=== PATIENT | female | born 1935 | race Caucasian/White ===

== ENCOUNTER 2018-06-29 08:20 | Emergency (ER) | payer MEDICARE, BC ==
[~2018-06-29] VITALS: Ht 172.7 cm; Wt 66.2 kg
--- NOTE | 2018-06-29 08:32 | NUR ---
PT BIBSELF WITH FACIAL BRUISING AND LEFT KNEE PAIN. LEFT SWOLEN KNEE S/P FALL AT A STORE YESTERDAY. -KO. PT ON MONITOR IN BED 3. FAMILY AT BEDSIDE. WILL CONTINUE TO MONITOR.
--- NOTE | 2018-06-29 09:19 | NUR ---
PT BROUGHT BACK FROM CT VIA [facility]. PT TOLERATED WELL.
--- NOTE | 2018-06-29 10:13 | NUR ---
IV removed. Catheter intact and site benign. Pressure and 4x4 applied to site. No bleeding noted.Patient discharged to home in stable condition. Written and verbal after care instructions given. Patient verbalizes understanding of instruction.
[2018-06-29 10:14] VITALS: BP 136/74
== END 2018-06-29 10:15 | disposition home or self-care (01) ==
LOC: ER 08:28
DX: S02.2XXA Fracture of nasal bones, initial encounter for closed fracture (principal); S00.83XA Contusion of other part of head, initial encounter; S89.82XA Other specified injuries of left lower leg, initial encounter; W18.39XA Other fall on same level, initial encounter; Y93.89 Activity, other specified; Y92.89 Other specified places as the place of occurrence of the external cause; Y99.8 Other external cause status
CPT/HCPCS: 70450-TC; 70486-TC; 73564-TC; A4606; Z7610

== ENCOUNTER 2019-04-26 10:38 | Emergency (ER) | payer MEDICARE, BC ==
[~2019-04-26] VITALS: Ht 167.6 cm; Wt 56.2 kg
[2019-04-26 10:56] VITALS: BP 114/70
[2019-04-26] MEDS ORDERED: TDAP [DIPH/PERTUSSIS/TET] 0.5 ML VIAL IM ONE ×2 (11:28→11:30)
--- NOTE | 2019-04-26 11:29 | NUR ---
WOUND CLEANING DONE, DERMABOUND APPLIED ON THE LEFT INDEX FINGER.
--- NOTE | 2019-04-26 11:41 | NUR ---
Patient discharged to home in stable condition. Written and verbal after care instructions given. Patient verbalizes understanding of instruction.
== END 2019-04-26 11:42 | disposition home or self-care (01) ==
LOC: ER 10:47
DX: S61.211A Laceration without foreign body of left index finger without damage to nail, initial encounter (principal); W26.8XXA Contact with other sharp object(s), not elsewhere classified, initial encounter; Y93.89 Activity, other specified; Y92.89 Other specified places as the place of occurrence of the external cause; Y99.8 Other external cause status
CPT/HCPCS: 90715

== ENCOUNTER 2019-04-26 13:29 | Emergency (ER) | payer MEDICARE, BC ==
[~2019-04-26] VITALS: Ht 165.1 cm; Wt 59.0 kg
[2019-04-26 13:49] VITALS: BP 127/90
[2019-04-26] MEDS ORDERED: GELATIN SPONGE,ABSORBABLE 1 SPONGE SPONGE TP ONE (14:10)
--- NOTE | 2019-04-26 14:20 | NUR ---
WOOUND CARE DONE BY [employer]ATIONS MANAGER.
--- NOTE | 2019-04-26 14:27 | NUR ---
Patient discharged to home in stable condition. Written and verbal after care instructions given. Patient verbalizes understanding of instruction.
== END 2019-04-26 14:28 | disposition home or self-care (01) ==
LOC: ER 13:29
DX: S61.212A Laceration without foreign body of right middle finger without damage to nail, initial encounter (principal); M25.041 Hemarthrosis, right hand; X58.XXXA Exposure to other specified factors, initial encounter; Y93.89 Activity, other specified; Y92.89 Other specified places as the place of occurrence of the external cause; Y99.8 Other external cause status